=== PATIENT | male | born 1995 | race Caucasian/White ===

== ENCOUNTER → 2022-04-11 | Outpatient (CLI) | payer OTHER, BC, SELFPAY ==
--- NOTE | 2022-04-11 06:56 | CT_ITS ---
STUDY: CT SCAN HAND RIGHT REASON FOR EXAM: Male, 26 years old. FALL ON STEPS RADIATION DOSAGE (If Supplied By Facility): CTDIvol = ( 24.58 ) mGy, DLP = ( 609.77 ) mGycm. Individualized dose optimization techniques were used for this CT.? TECHNIQUE: Multiple axial tomographic images were obtained without intravenous contrast demonstration. Coronal and sagittal reconstructions as well as 3-D reconstruction was obtained as well. COMPARISON: None. FINDINGS: There is a comminuted minimally displaced fracture at the base of the fifth metacarpal. Soft tissue swelling. CT/Extremity Upper without Contra IMPRESSION: Comminuted minimally displaced fracture at the base of the fifth metacarpal with overlying soft tissue swelling. Electronically Signed: Prasanna Sewell MD at 8:11 EDT ,
== END | disposition home or self-care (01) ==
PROVIDERS: Referring Provider Orthopaedic Surgery; Visit Provider Orthopaedic Surgery
DX: S62.316A Displaced fracture of base of fifth metacarpal bone, right hand, initial encounter for closed fracture (principal)
CPT/HCPCS: 73200